=== PATIENT | female | born 2000 | race Caucasian/White ===

== ENCOUNTER 2023-02-17 16:02 | Emergency (ER) | payer BC ==
[~2023-02-17] VITALS: Ht 149 cm; Wt 108.8 kg
[2023-02-17] MEDS ORDERED: NS IV 1000 ML 1,000 ML IV STA (16:42)
[2023-02-17] MEDS ORDERED: fentaNYL INJECTION 100 MCG/2 ML VIAL IVP STA (16:42)
--- NOTE | 2023-02-17 16:48 | ED Back Pain ---
General Chief Complaint: Back Problems Stated Complaint: RT UPPER ARM INSECT BITE Nursing Triage Note: PT ARRIVES TO ER VIA W/C WITH VISITOR. PT REPORTS BIT BY A BLACK SPIDER TO R ELBOW APPROX 1100 TODAY, SPIDER WAS WITNESS AND KILLED BY PT. PT WENT TO CLINIC AFTER BITE, RECEIVED TETANUS VACCINE AND A ANTI-INFLAMMATORY INJECTION, PT REPORTS DEVELOPED BACK PAIN WHILE AT CLINIC AND HAS WORSENED THE DAY PROGRESSED, REPORTS PAIN RADIATES AROUND INTO CHEST. EKG PERFORMED IN TRIAGE. Source of Information: Patient Exam Limitations: No Limitations History of Present Illness Date Seen by Provider: Feb 17, 2023 Time Seen by Provider: 16:46 Initial Comments Patient is a 22-year-old female who presents the ED with family for potential spider bite. This occurred around 11 PM. She states she was bitten to the righ t posterior elbow. She states the spider was a black . She states she felt the spider crawling on her she hit the spider and it fell to the ground. She thought she felt a bite. She did have localized redness but that has improved. She went to the clinic this afternoon received a Toradol shot and tetanus shot. When she left she started having pain in her back that radiate to the chest abdomen. She reports pain to her knees. She feels like her back is spasming. She denies any vomiting, diarrhea, shortness of breath, cough, headache, dizziness, visual changes. She is able to ambulate but with severe pain. Allergies and Home Medications Allergies Coded Allergies: Penicillins (Verified Allergy, Unknown, 02/17/23) Patient Home Medication List Home Medication List Reviewed: Yes Cyclobenzaprine HCl (Cyclobenzaprine HCl) 10 Mg Tablet, 10 MG PO TID Prescribed by: RENEE ENRIQUE on 02/17/231907 Review of Systems Constitutional: No chills, No diaphoresis EENTM: No hearing loss, No ear pain, No blurred vision, No double vision Respiratory: No cough, No dyspnea on exertion Cardiovascular: chest pain Gastrointestinal: abdominal pain; No diarrhea, No nausea, No vomiting Genitourinary: No decreased output, No discharge Musculoskeletal: back pain, joint pain, muscle pain, muscle stiffness Skin: No change in color, No change in hair/nails All Other Systems Reviewed Negative Unless Noted: Yes Past [id number]-Kjxiow Hx Patient Social History Tobacco Use?: No Use of E-Cig and/or Vaping dev: No Substance use?: No Alcohol Use?: No Pt feels they are or have been: No Immunizations Up To Date First/Initial COVID19 Vaccinat: DENIES Past Medical History Last Menstrual Period: Feb 02, 2023 Physical Exam Vital Signs Vital Signs - First Documented 02/17/23 16:30 Temp 36.5 Pulse 92 Resp 16 B/P (MAP) 123/63 (83) Pulse Ox 98 O2 Delivery Room Air Capillary Refill : Height, Weight, BMI Height: '" Weight: lbs. oz. kg; 49.00 BMI Method: General Appearance: No Apparent Distress, WD/WN HEENT: PERRL/EOMI, TMs Normal, Normal ENT Inspection, Pharynx Normal; No Moist Mucous Membranes Neck: Full Range of Motion, Normal Inspection, Non Tender, Supple Cardiovascular: Regular Rate, Rhythm, No Edema, No Gallop, No JVD, No Murmur Respiratory: Chest Non Tender, Lungs Clear, Normal Breath Sounds, No Accessory Muscle Use, No Respiratory Distress Gastrointestinal: Normal Bowel Sounds, No Organomegaly Back: Other (Generalized back tenderness.) Extremity: Other (Normal active range of motion of the extremities. No swelling, or redness. Neurovascular intact.) Neurologic/Psychiatric: Alert, Oriented x3, No Motor/Sensory Deficits, Normal Mood/Affect Skin: Normal Color, Warm/Dry Progress/Results/Core Measures Results/Orders Lab Results Laboratory Tests Test 02/17/23 16:52 02/17/23 18:22 Range/Units White Blood Count 13.4 H 4.3-11.0 10^3/uL Red Blood Count 5.28 H 3.80-5.11 10^6/uL Hemoglobin 16.0 11.5-16.0 g/dL Hematocrit 47 35-52 % Mean Corpuscular Volume 90 80-99 fL Mean Corpuscular Hemoglobin 30 25-34 pg Mean Corpuscular Hemoglobin Concent 34 32-36 g/dL Red Cell Distribution Width 11.8 10.0-14.5 % Platelet Count 367 130-400 10^3/uL Mean Platelet Volume 10.2 9.0-12.2 fL Immature Granulocyte % (Auto) 1 % Neutrophils (%) (Auto) 62 42-75 % Lymphocytes (%) (Auto) 28 12-44 % Monocytes (%) (Auto) 7 0-12 % Eosinophils (%) (Auto) 2 0-10 % Basophils (%) (Auto) 1 0-10 % Neutrophils # (Auto) 8.3 H 1.8-7.8 10^3/uL Lymphocytes # (Auto) 3.8 1.0-4.0 10^3/uL Monocytes # (Auto) 0.9 0.0-1.0 10^3/uL Eosinophils # (Auto) 0.3 0.0-0.3 10^3/uL Basophils # (Auto) 0.1 0.0-0.1 10^3/uL Immature Granulocyte # (Auto) 0.1 0.0-0.1 10^3/uL Sodium Level 139 135-145 MMOL/L Potassium Level 4.4 3.6-5.0 MMOL/L Chloride Level 108 H 98-107 MMOL/L Carbon Dioxide Level 14 L 21-32 MMOL/L Anion Gap 17 H 5-14 MMOL/L Blood Urea Nitrogen 9 7-18 MG/DL Creatinine 0.73 0.60-1.30 MG/DL Estimat Glomerular Filtration Rate 118 BUN/Creatinine Ratio 12 Glucose Level 94 70-105 MG/DL Lactic Acid Level 1.14 0.50-2.00 MMOL/L Calcium Level 10.4 H 8.5-10.1 MG/DL Corrected Calcium 10.0 8.5-10.1 MG/DL Total Bilirubin 1.3 H 0.1-1.0 MG/DL Aspartate Amino Transf (AST/SGOT) 64 H 5-34 U/L Alanine Aminotransferase (ALT/SGPT) 63 H 0-55 U/L Alkaline Phosphatase 99 40-136 U/L Total Creatine Kinase 89 29-168 U/L Troponin I < 0.028 <0.028 NG/ML Total Protein 8.6 H 6.4-8.2 GM/DL Albumin 4.5 3.2-4.5 GM/DL Lipase 14 8-78 U/L Urine Color YELLOW Urine Clarity CLEAR Urine pH 5.5 5-9 Urine Specific [place] 1.025 H 1.016-1.022 Urine Protein 1+ H NEGATIVE Urine Glucose (UA) NEGATIVE NEGATIVE Urine Ketones TRACE H NEGATIVE Urine Nitrite NEGATIVE NEGATIVE Urine Bilirubin NEGATIVE NEGATIVE Urine Urobilinogen 0.2 < = 1.0 MG/DL Urine Leukocyte Esterase TRACE H NEGATIVE Urine RBC (Auto) TRACE H NEGATIVE Urine RBC RARE /HPF Urine WBC 2-5 /HPF Urine Squamous Epithelial Cells 5-10 /HPF Urine Crystals NONE /LPF Urine Bacteria TRACE /HPF Urine Casts NONE /LPF Urine Mucus SMALL H /LPF Urine Culture Indicated NO My Orders Orders - IFTIKHAR GUILLEN Cbc And Automated Diff (02/17/23 16:42) Creatine Kinase (02/17/23 16:42) Lactic Acid Analyzer (02/17/23 16:42) Urinalysis (02/17/23 16:42) Chest 1 View, Ap/Pa Only (02/17/23 16:42) Troponin I Josee (02/17/23 16:42) Lipase (02/17/23 16:42) Ns Iv 1000 Ml (Ns Iv 1000 Ml) (02/17/23 16:42) Fentanyl Injection (Fentanyl Injection (02/17/23 16:42) Morphine Injection (Morphine Injection (02/17/23 18:00) Lorazepam Tablet (Lorazepam Tablet) (02/17/23 18:02) Comprehensive Metabolic Panel (02/17/23 19:45) Medications Given in ED Current Medications Medications Dose Ordered Sig/Carlos Route Start Time Stop Time Status Last Admin Dose Admin Morphine Sulfate 4 mg ONCE ONCE IVP 02/17/23 18:00 02/17/23 18:01 DC 02/17/23 18:01 4 MG Vital Signs/I&O 02/17/23 02/17/23 02/17/23 16:30 18:04 19:10 Temp 36.5 36.5 Pulse 92 81 75 Resp 16 16 B/P (MAP) 123/63 (83) 149/84 (105) 148/84 Pulse Ox 98 99 99 O2 Delivery Room Air Room Air Room Air Blood Pressure Mean: 83 Departure Communication (PCP) patient is a 22-year-old female who presents ED with diffuse muscle spasming and pain. Pain located in her back. Pain radiates to the abdomen chest lower extremities. She is concerned she was bitten by a black on her right elbow. She states she felt it on her elbow and immediately hit it. She thought she had some redness to the elbow posterior after the bite. This occurred around 11 AM went to [facility] had a tetanus shot and recieved Toradol. She start developing diffuse cramping immediately afterwards. Pain in the back radiates to the chest abdomen lower extremities. Unclear if this is secondary to the Toradol versus tetanus which she has received in the past or potential spider bite. There is no evidence of redness or swelling or area of inoculation on the elbow. She is yelling in pain. Would suspect to see you at least swelling or redness from a bite. We will treat as a potential spider bite such as a black . She states she noted a red spot on its belly. CBC, CMP, CPK, urinalysis, lactic acid cardiac work-up was initiated. CBC, CMP grossly unremarkable. CK lactic acid normal. EKG showed sinus rhythm. Troponin negative. Chest x-ray grossly unremarkable. Urinalysis was negative for infection. She did receive 2 rounds of narcotics with improvement of pain. She was able to stand and bear weight. Neuro exam was unremarkable. No focal weakness. Vital signs was stable. Only abnormal lab work was her white blood cell of 13. Patient appears to be doing much better. Clinically I do not think patient needs admission at this time. Will discharge with muscle relaxers as needed. Alternate Tylenol ibuprofen. If any worsening pain to return back to ED. Impression Primary Impression: Muscle pain Disposition: HOME, SELF-CARE Condition: Stable Departure-Patient Inst. Decision time for Depature: 19:07 Referrals: NO,LOCAL PHYSICIAN (PCP) Primary Care Physician Patient Instructions: Acute Pain, Adult (DC) Scripts Cyclobenzaprine HCl (Cyclobenzaprine HCl) 10 Mg Tablet 10 MG PO TID for Muscle Spasms, #14 TAB Prov: IFTIKHAR GUILLEN 02/17/23 IFTIKHAR GUILLEN Feb 17, 2023 16:48
[2023-02-17 16:58] LABS: BASOPHILS # (AUTO) 0.1 10^3/uL (0.0-0.1); BASOPHILS % (AUTO) 1 % (0-10); EOSINOPHILS # (AUTO) 0.3 10^3/uL (0.0-0.3); EOSINOPHILS % (AUTO) 2 % (0-10); HEMATOCRIT 47 % (35-52); LYMPHOCYTES # (AUTO) 3.8 10^3/uL (1.0-4.0); LYMPHOCYTES % (AUTO) 28 % (12-44); MEAN CORPUSCULAR HEMOGLOBIN 30 pg (25-34); MEAN CORPUSCULAR HGB CONC 34 g/dL (32-36); MEAN CORPUSCULAR VOLUME 90 fL (80-99); MEAN PLATELET VOLUME 10.2 fL (9.0-12.2); MONOCYTES # (AUTO) 0.9 10^3/uL (0.0-1.0); MONOCYTES % (AUTO) 7 % (0-12); NEUTROPHILS # (AUTO) 8.3 10^3/uL (1.8-7.8); NEUTROPHILS % (AUTO) 62 % (42-75); PLATELET COUNT 367 10^3/uL (130-400); WHITE BLOOD COUNT 13.4 10^3/uL (4.3-11.0)
--- NOTE | 2023-02-17 17:09 | Diagnostic Imaging Report ---
INDICATION: Substernal chest pain. EXAMINATION: Portable chest, 5:08 p.m. FINDINGS: Heart and mediastinum are normal. Lungs are clear. There are no effusions or pneumothoraces. IMPRESSION: No acute abnormalities in the chest. Dictated by: Dictated on workstation # [id number]
[2023-02-17 17:15] LABS: CREATINE KINASE 89 U/L (29-168); LIPASE 14 U/L (8-78)
[2023-02-17] MEDS ORDERED: morphine INJ 10 MG/ML 1ML (SYR OR VIAL) IVP ONE (18:00)
[2023-02-17] MEDS ORDERED: LORazepam 0.5 MG TABLET PO STA (18:02)
[2023-02-17 18:42] LABS: BACTERIA,URINE TRACE /HPF; BILIRUBIN,URINE NEGATIVE (NEGATIVE); CLARITY,URINE CLEAR; COLOR,URINE YELLOW; GLUCOSE, URINE (UA) NEGATIVE (NEGATIVE); KETONES,URINE TRACE (NEGATIVE); LEUKOCYTE ESTERASE ,URINE TRACE (NEGATIVE); NITRITE,URINE NEGATIVE (NEGATIVE); PH,URINE 5.5 (5-9); PROTEIN,URINE 1+ (NEGATIVE); RBC,URINE RARE /HPF
[2023-02-17] MEDS ORDERED: CYCL10TA25 PO (19:08)
[2023-02-17 19:10] VITALS: BP 148/84
[2023-02-17 19:57] LABS: ALBUMIN 4.5 GM/DL (3.2-4.5); POTASSIUM 4.4 MMOL/L (3.6-5.0)
[2023-02-17 19:59] LABS: CALCIUM 10.4 MG/DL (8.5-10.1)
[2023-02-17 20:00] LABS: TOTAL PROTEIN 8.6 GM/DL (6.4-8.2)
[2023-02-17 20:02] LABS: BILIRUBIN,TOTAL 1.3 MG/DL (0.1-1.0)
[2023-02-17 20:03] LABS: CREATININE SERUM 0.73 MG/DL (0.60-1.30)
== END 2023-02-17 19:11 | disposition home or self-care (01) ==
LOC: EDUNIT# 16:02 → ER 16:08
DX: M54.9 Dorsalgia, unspecified (principal)
CPT/HCPCS: 36415; 71045; 80053; 81000; 82550; 83605; 83690; 84484; 85025; 93005